=== PATIENT | male | born 1990 | race Hispanic/Latino ===

== ENCOUNTER 2019-01-05 06:50 | Day surgery (SDC) | payer SELFPAY ==
[~2019-01-05] VITALS: Ht 170.2 cm; Wt 86.2 kg
[2019-01-05] MEDS ORDERED: PERCOCET 10/31 COMBO PO ×2 (10:04→10:07)
[2019-01-05 10:29] VITALS: BP 140/73
== END 2019-01-05 10:38 | disposition home or self-care (01) | DRG 603 ==
LOC: ORM 06:50
PROVIDERS: ATTEND Surgery
PROC: 0HB0XZZ Excision of Scalp Skin, External Approach (ICD-10-PCS; principal; 2019-01-05)
DX: L02.821 Furuncle of head [any part, except face] (principal)